=== PATIENT | male | born 1995 | race Caucasian/White ===

== ENCOUNTER 2021-01-06 21:38 | Emergency (ER) | payer OTHER ==
[~2021-01-06] VITALS: Ht 177.8 cm; Wt 77.1 kg
[2021-01-07] MEDS ORDERED: ZESTRIL10 MG PO (03:49)
== END 2021-01-07 04:49 | disposition home or self-care (01) ==
LOC: ED 21:38
PROC: 0RSKXZZ Reposition Left Shoulder Joint, External Approach (ICD-10-PCS; principal; 2021-01-06)
DX: M24.412 Recurrent dislocation, left shoulder (principal); Z88.7 Allergy status to serum and vaccine; W51.XXXA Accidental striking against or bumped into by another person, initial encounter
CPT/HCPCS: 23650; 73030; 99152; 99283-25; J2704